=== PATIENT | male | born 1960 | race Hispanic/Latino ===

== ENCOUNTER 2020-11-10 06:14 | Day surgery (SDC) | payer BC ==
--- NOTE | 2020-11-08 13:11 | RAD REPORT ---
EXAM DESCRIPTION: Zane Franco (2 Views)11/08/2020 12:48 pm CLINICAL HISTORY: Preop for abscess removal/hypertension COMPARISON: 2017 FINDINGS: The lungs appear clear of acute infiltrate. The heart is mildly enlarged. Pacemaker leads are in place. IMPRESSION: No acute abnormalities displayed
[2020-11-08 13:34] LABS: Absolute Lymphocytes (CBC) 1.1 K/uL (0.7-4.9); Basophils % 0.4 % (0-1.3); Hematocrit 53.9 % (39.6-49.0); Lymphocytes % 7.8 % (15.3-44.8); MPV 10.6 fL (7.6-11.3); RBC Red Blood Cell Count 6.08 M/uL (4.33-5.43)
[2020-11-08 13:43] LABS: Potassium 4.3 mmol/L (3.5-5.1)
--- NOTE | 2020-11-08 16:40 | EKG ---
Test Date: 2020-11-08 Test Time: 11:25:41 Hadoop Analyst: WANDA MEASUREMENT RESULTS: Intervals: Rate: 84 DE: 160 QRSD: 178 QT: 410 QTc: 484 [place]: P: 56 DE: 160 QRS: 267 T: 77 INTERPRETIVE STATEMENTS: Normal sinus rhythm Nonspecific intraventricular block Lateral infarct, age undetermined Inferior infarct, age undetermined Abnormal ECG Compared to ECG 12/25/2016 16:31:03 Right bundle-branch block no longer present Left anterior fascicular block no longer present Bifascicular block no longer present Left ventricular hypertrophy no longer present T-wave abnormality no longer present Possible ischemia no longer present Myocardial infarct finding still present Electronically Signed On 11-08-20 16:38:49 CDT by Que Stubbs
[2020-11-10] MEDS: NA CHLORIDE 0.9% 1,000 ML ONE ×2 (06:43→07:18)
[2020-11-10] MEDS ORDERED: CEFAZOLIN/NS 1gm 1 GM/50 ML BAG ONE (07:09)
[2020-11-10] MEDS ORDERED: BUPIVACAINE 0.5% PF 10 ML VIAL ONE (07:26)
[2020-11-10] MEDS ORDERED: propofoL 200 MG/20 ML VIAL IV ONE (07:36)
[2020-11-10] MEDS ORDERED: LIDOCAINE 1% MPF 5 ML VIAL ONE (07:37)
[2020-11-10] MEDS ORDERED: MIDAZOLAM HCL 2 MG/2 ML INJ ONE (07:37)
[2020-11-10] MEDS ORDERED: FENTANYL CITR 100 MCG/2 ML ONE (07:37)
[2020-11-10] MEDS ORDERED: NS 0.9% VIAL 10 ML ONE ×2 (08:05→08:14)
[2020-11-10] MEDS ORDERED: Phenylephrine HCl 10 MG/ML 1 ML VIAL ONE (08:14)
[2020-11-10] MEDS ORDERED: ONDANSETRON 4 MG/2 ML VIAL ONE (08:15)
--- NOTE | 2020-11-10 09:32 | OP ---
Date of Procedure: 11/10/2020 Surgeon: Malik Sheriff MD Bread Supervisor: None. Preoperative Diagnosis: Left buttock abscess. Postoperative Diagnosis: Left buttock abscess. Procedure: Incision, drainage and debridement of left buttock abscess. Estimated Blood Loss: Minimal. Specimen: Pus and necrotic tissue. Findings: As above. Anesthesia: General. Complications: None. Disposition: The patient tolerated the procedure in stable condition and taken to Recovery in good g eneral condition. Procedure In Detail: The patient was brought to the OR and placed in supine position. General anest hesia was begun. The patient was prepped and draped in the usual sterile fashion. Marcaine 0.5% was infiltrated locally. Then, a 15 blade was used to make an ellipse of skin excision where the necrot ic tissue was approximately 6 x 3 cm over the fluctuant part of the abscess. The patient was in the right lateral position. Subcutaneous tissue was divided and then pus under pressure was evacuated and loculation was broken up. Necrotic tissue debrided. Cultures were done. Wound was irrigated. A c urette was used to debride the fibrinous material. Bleeding was controlled with cautery. Wound was irrigated again and then packed with wet-to-dry normal saline dressing. The patient tolerated the pr ocedure in stable condition, awakened and taken to Recovery in good general condition. Discharge Note: The patient will go to Day Surgery and home when stable. Disposition: Home. Condition: Stable. Discharge Instructions: Resume home meds and diet. Activity as tolerated. No heavy lifting. Remov e outer dressing in a.m. Wet-to-dry normal saline dressing changes daily. The patient has home heal th. The patient has antibiotics and pain medicine. Follow up in my office in 1 week. Call for appo cornelio. VASYL/MELINDA Voice ID: [id number] Report ID: [id number]
[2020-11-10] MEDS ORDERED: HYDROCODONE/APAP 7.5/325 MG TAB ONE (09:40)
[2020-11-10 10:14] VITALS: BP 95/60; TEMP 97.4; O2SAT 95
== END 2020-11-10 09:50 | disposition home or self-care (01) ==
LOC: OR 06:14
PROVIDERS: ATTEND Surgery
PROC: 0J990ZZ Drainage of Buttock Subcutaneous Tissue and Fascia, Open Approach (ICD-10-PCS; principal; 2020-11-10 07:30)
DX: L02.31 Cutaneous abscess of buttock (principal); I96 Gangrene, not elsewhere classified; Z20.822 Contact with and (suspected) exposure to COVID-19
CPT/HCPCS: 93005; 87070; 85025; 80048; 36415; 87205; 82947; 88304; 87075; 87077; 87186; 71046; 10060; U0003; J2704; J2370; J2250; J3010; J0690; J7030; J2405